=== PATIENT | female | born 1960 | race American Indian/Alaskan Native ===

== ENCOUNTER 2020-06-06 08:40 | Emergency (ER) | payer OTHER ==
[2020-06-06 09:15] VITALS: BP 120/60
--- NOTE | 2020-06-06 11:14 | Emergency Department Report ---
[facility]il[facility] Doc - Documentation Documentation: 60-year-old F [place] female with past medical history of chronic recurrent b ack pain presents to the emergency department via [facility] states that she had an onset of back pain after standing up yesterday and feeling a popping sensation. This pain was to the point where she had to crawl around the house and crawled downstairs to seek help from the fire department to bring her to the emergency department here today for further evaluation treatment options. There was no loss of bowel or bladder no saddle paresthesia no loss of sensation or strength to her legs states she had a similar episode back in 2011 on the right side however this was accompanied by sciatica-like pain to the right lower extremity This initial assessment/diagnostic orders/clinical plan/treatment(s) is/are subject to change based on patients health status, clinical progression and re-assessment by fellow clinical providers in the ED. Further treatment and workup at subsequent clinical providers discretion. Patient/guardian urged not to elope from the ED as their condition may be serious if not clinically assessed and managed. Initial orders include: Go to [facility] in the bed give a detailed spine examination and neuro evaluation and pain management. Case was discussed with attending Dr. Robles
[2020-06-06] MEDS ORDERED: KETOROLAC 60 MG/2 ML INJ IM STA (12:22)
[2020-06-06] MEDS ORDERED: oxyCODONE /ACETAMINOPHEN 5-325MG TAB PO ONE (12:22)
--- NOTE | 2020-06-06 12:30 | Emergency Department Report ---
ED Back Pain/Injury HPI - General Chief Complaint: Back Pain/Injury Stated Complaint: BACK PAIN Time Seen by Provider: 06/06/20 12:22 Source: patient Limitations: No Limitations - History of Present Illness Initial Comments: 60-year-old F [place] female with past medical history of chronic recurrent back pain presents to the emergency department via [facility] states that she had an onset of back pain after standing up yesterday and feeling a popping sensation. This pain was to the point where she had to crawl around the house and crawled downstairs to seek help from the fire department to bring her to the emergency department here today for further evaluation treatment options. There was no loss of bowel or bladder no saddle paresthesia no loss of sensation or strength to her legs states she had a similar episode back in 2011 on the right side however this was accompanied by sciatica-like pain to the right lower extremity MD Complaint: back pain -: Gradual Similar Symptoms Previously: No Place: home Radiation: none Severity: mild Quality: dull, aching Consistency: constant Improves With: none Worsens With: none - Related Data Previous Rx's Medication Instructions Recorded Last Taken Type Ketorolac [Toradol] 10 mg PO Q6H PRN #10 tablet 06/06/20 Unknown Rx methOCARBAMOL [Robaxin TAB] 500 mg PO Q6H PRN #28 tablet 06/06/20 Unknown Rx Allergies Allergy/AdvReac Type Severity Reaction Status Date / Time No Known Allergies Allergy Unverified 06/06/20 09:14 ED Review of Systems ROS: Stated complaint: BACK PAIN Other details as noted in HPI Comment: All other systems reviewed and negative ED Past Medical Hx - Social History Smoking Status: Never Smoker Substance Use Type: Alcohol - Medications Home Medications: Home Medications Medication Instructions Recorded Confirmed Last Taken Type Ketorolac [Toradol] 10 mg PO Q6H PRN #10 tablet 06/06/20 Unknown Rx methOCARBAMOL [Robaxin TAB] 500 mg PO Q6H PRN #28 tablet 06/06/20 Unknown Rx ED Physical Exam - General Limitations: No Limitations General appearance: alert, in no apparent distress - Head Head exam: Present: atraumatic, normocephalic - Eye Eye exam: Present: normal appearance, PERRL, EOMI Pupils: Present: normal accommodation - ENT ENT exam: Present: normal exam, normal orophraynx, mucous membranes moist, TM's normal bilaterally - Neck Neck exam: Present: normal inspection, full ROM - Respiratory Respiratory exam: Present: normal lung sounds bilaterally. Absent: respiratory distress, chest wall tenderness, accessory muscle use - Cardiovascular Cardiovascular Exam: Present: regular rate, normal rhythm. Absent: bradycardia, tachycardia, systolic murmur, diastolic murmur, rubs, gallop - GI/Abdominal GI/Abdominal exam: Present: soft, normal bowel sounds. Absent: hyperactive bowel sounds, hypoactive bowel sounds, organomegaly - Extremities Exam Extremities exam: Present: normal inspection, normal capillary refill - Back Exam Back exam: Present: normal inspection, tenderness, muscle spasm, vertebral tenderness. Absent: CVA tenderness (R), CVA tenderness (L) - Neurological Exam Neurological exam: Present: alert, oriented X3, CN II-XII intact, normal gait, motor sensory deficit, reflexes normal, other (Rule a reflex hammer and Wartenberg wheel was utilized to assist with the neuro examination. Ms. Alvarado was able to get onto the bed with no assistance able to move her legs with no assistance sensation is intact Babinski is intact) - Psychiatric Psychiatric exam: Present: normal affect, normal mood - Skin Skin exam: Present: warm, dry, intact, normal color. Absent: rash ED Course Vital Signs 06/06/20 09:14 Temperature 98.1 F Pulse Rate 91 H Respiratory 18 Rate Blood Pressure 120/60 [Right] O2 Sat by Pulse 97 Oximetry ED Medical Decision Making - Medical Decision Making Pt presents the emergency department complaining of back pain most consistent with lumbago back Pain Most Consistent with Strain/Contusion. Differential Diagnosis Includes LumbaGo Versus Musculoskeletal Spasm, Strain Versus Sciatica. No Back Pain Red Flags on History or Physical. Presentation Not Consistent with Malignancy, Fracture, Cauda Equina, Abdominal Aortic Aneurysm, Viscus Perforation, Pulmonary Embolism, Renal Colic, Pyelonephritis. Patient reports no B symptoms, trauma trauma, incontinence, saddle anesthesia, distal weakness, urinary symptoms and is a febrile. Critical care attestation.: If time is entered above; I have spent that time in minutes in the direct care of this critically ill patient, excluding procedure time. ED Disposition Clinical Impression: Lumbago Disposition: - TO HOME OR SELFCARE Is pt being admited?: No Does the pt Need Aspirin: No Condition: Stable Instructions: Chronic Back Pain Prescriptions: methOCARBAMOL [Robaxin TAB] 500 mg PO Q6H PRN #28 tablet PRN Reason: back spasm Ketorolac [Toradol] 10 mg PO Q6H PRN #10 tablet PRN Reason: Pain Referrals: PRIMARY CARE, [Primary Care Provider] - 3-5 Days SELINA SIGALA MD [Staff Physician] - 3-5 Days
== END 2020-06-06 13:55 | disposition home or self-care (01) ==
LOC: ED 08:40
DX: M54.5 Low back pain (principal); Z79.899 Other long term (current) drug therapy
CPT/HCPCS: 96372; 99283; J1885